=== PATIENT | female | born 1965 | race Caucasian/White ===

== ENCOUNTER 2019-09-17 10:44 | Outpatient (RCR) | payer BC, SELFPAY ==
[2019-09-17 11:02] VITALS: BMI 28.8
== END 2019-12-16 23:59 | disposition home or self-care (01) ==
LOC: ANHDMC 10:44
PROVIDERS: PCP Family Medicine; Visit Provider Family Medicine
DX: E11.9 Type 2 diabetes mellitus without complications (principal); Z71.3 Dietary counseling and surveillance
CPT/HCPCS: 97802

== ENCOUNTER 2020-09-08 06:42 | Outpatient (NON) | payer BC, SELFPAY ==
[2020-09-10 21:25] LABS: SARS-CoV-2 RNA PCR Negative
== END 2020-09-08 06:43 ==
PROVIDERS: PCP Family Medicine; Visit Provider Physician Assistant
DX: R06.02 Shortness of breath (principal); Z20.828 Contact with and (suspected) exposure to other viral communicable diseases
CPT/HCPCS: 87635; C9803; U0003

== ENCOUNTER 2020-09-15 11:47 | Outpatient (CLI) | payer BC, SELFPAY ==
--- NOTE | ~2020-09-15 | XR_ITS ---
EXAMINATION: XR chest 2V EXAM DATE: 09/15/2020 12:01 INDICATION: R06.2 - Wheezing . TECHNIQUE: Frontal and lateral projections of the chest obtained and reviewed. Comparison is made to prior examination from 09/13/2018. FINDINGS: The lungs are clear. There are no pleural effusions. The cardiomediastinal silhouette is within normal limits. There is no pneumothorax suspected. The bones and soft tissues are unremarkab le. There is no significant interval change. IMPRESSION: No acute cardiopulmonary findings. Reviewed, dictated and finalized at location A. ELING CRANE OPERATOR
== END 2020-09-15 11:48 ==
PROVIDERS: PCP Family Medicine; Visit Provider Physician Assistant
DX: R06.2 Wheezing (principal)
CPT/HCPCS: 71046

== ENCOUNTER 2021-02-10 12:00 | Emergency (ER) | payer BC, SELFPAY ==
[2021-02-10] VITALS (7 sets, daily range): BP systolic 139–155; BP diastolic 72–93; PULSE 64–89; RESP 14–19; TEMP 36.6; O2SAT 99–100
--- NOTE | ~2021-02-10 | CT_ITS ---
EXAMINATION: CT abdomen pelvis w con EXAM DATE: 02/10/2021 17:00 INDICATION: Left sided abdominal pain. TECHNIQUE: Spiral CT of the abdomen and pelvis was performed following intravenous injection of 100 m L Omnipaque 350. Axial, coronal and sagittal images of the abdomen and pelvis were reviewed. The do se-length product (DLP) for this examination was 518.08 mGy-cm. The exposure was tailored according to patient size (auto mA exposure control), and iterative reconstruction (ASIR) was used as additiona l dose reduction technique. Comparison is made to prior examination from 02/01/2016. FINDINGS: There is mild feli mesentery appearance, a nonspecific finding but most commonly caused by infiltration with inflammatory cells, chronic mesenteric panniculitis. No pathologically enlarged ly mph nodes to suggest lymphoma/malignancy, or thrombosed vessels to suggest edema. Appearance unchang ed compared to 2016. There is hepatic steatosis without suspicious focal lesion identified. Spleen, adrenal glands, pancre as are unremarkable. Gallbladder is unremarkable. No biliary obstruction. Portal and splenic veins are patent. Kidneys enhance symmetrically. There is no hydronephrosis. Multiple renal cysts bilate rally up to 6 cm on the right. The uterus is not identified and has likely been surgically resected. The bladder is unremarkable. There is no retroperitoneal or pelvic lymphadenopathy. The appendix is normal. There is small sliding gastroesophageal hiatal hernia. There is expected am ount of colonic stool. No free intraperitoneal gas. The heart is normal in size. There are no pe ricardial or pleural effusions. The lung bases are unremarkable. The bones are unremarkable. IMPRESSION: 1. Unchanged feli mesentery appearance, probably chronic mesenteric panniculitis. 2. Mild hepatic steatosis. 3. Small hiatal hernia. Reviewed, dictated and finalized at location A. IMPRESSION: 1. Unchanged feli mesentery appearance, probably chronic mesenteric panniculi tis. 2. Mild hepatic steatosis. 3. Small hiatal hernia.
--- NOTE | ~2021-02-10 | XR_ITS ---
EXAMINATION: XR chest 2V 02/10/2021 13:45 INDICATION: Shortness of breath PROCEDURE: 2 view chest COMPARISON: 01/31/2016 FINDINGS: The lungs are clear. The cardiomediastinal silhouette is within normal limits. There are no pleural effusions. There is no pneumothorax suspected. IMPRESSION: 1: NO ACUTE CARDIOPULMONARY DISEASE. Reviewed, dictated and finalized at location B.
--- NOTE | 2021-02-10 12:14 | ECG_ITS ---
Measurements Intervals [place] Rate: 86 P: 58 VA: 156 QRS: 51 QRSD: 79 T: 42 QT: 347 QTc: 416 Interpretive Statements SINUS RHYTHM BORDERLINE ST ABNORMALITY- ANTEROLAT/INF LEADS BORDERLINE ECG Electronically Signed On 02-10-2021 12:17:39 CDT by Shmuel Parsons D.O.
[2021-02-10 12:28] LABS: Basophils Absolute Auto 0.1 K/mm3 (0.0-0.1); Basophils Percent Auto 0.5 % (0.2-1.2); Eosinophils Absolute Auto 0.2 K/mm3 (0-0.3); Hematocrit 46.5 % (37.0-47.0); Hemoglobin 15.5 g/dL (12.0-15.0); Immature Granulocyte Absolute 0.04 K/mm3 (0.00-0.031); Immature Granulocyte Percent A 0.4 % (0-0.5); Lymphocytes Absolute Auto 1.76 K/mm3 (0.9-3.2); Lymphocytes Percent Auto 15.9 % (18.3-44.2); Mean Corpuscular HGB Conc 33.3 g/dl (32-36); Mean Corpuscular Hemoglobin 29.4 pg (26-34); Mean Corpuscular Volume 88.2 fl (80-100); Mean Platelet Volume 9.1 fl (7.4-10.4); Monocytes Absolute Auto 0.2 K/mm3 (0.1-0.6); Neutrophils Absolute Auto 8.8 K/mm3 (1.3-6.7); Neutrophils Percent Auto 79.2 % (45.5-73.1); Platelet Count Result 470 k/mm3 (150-375); Red Blood Count 5.27 M/mm3 (4.2-5.4); Red Cell Distribution Width 12.6 % (11.5-14.5); White Blood Count 11.1 K/mm3 (4.5-10.0)
[2021-02-10 12:39] LABS: Anion Gap 7 mmol/L (8-16); Blood Urea Nitrogen 19 mg/dL (7-17); Calcium 9.5 mg/dL (8.4-10.2); Carbon Dioxide 29 mmol/L (22-30); Chloride 105 mmol/L (98-107); Estimated CRCL calculation 63 ml/min; Estimated Glomerular Filt Rate > 60; Glucose 146 mg/dL (65-105); Potassium 4.3 mmol/L (3.4-5.0); Sodium 141 mmol/L (137-145)
--- NOTE | 2021-02-10 13:40 | PC.NURSE ---
Pt to XRAY via stretcher at this time.
--- NOTE | 2021-02-10 14:05 | ED.SOB ---
HPI - SOB/Dyspnea General Chief Complaint: Shortness of Breath/Dyspnea Stated Complaint: Difficulty breathing Time Seen by Provider: 02/10/21 13:33 Source: patient Mode of arrival: ambulatory Limitations: no limitations History of Present Illness HPI Narrative: This is a 55 year old female that presents to the ER for shortness of breath x 1 week. Reports dyspnea on exertion. Reports she has been coughing up some mucus. Reports wheezing and history of asthma. Also reports abdominal pain which started today. Reports she feels bloated. Reports some diarrhea. Denies fever, vomiting, dysuria, hematuria, or lower extremity edema. Related Data Allergies Allergy/AdvReac Type Severity Reaction Status Date / Time prochlorperazine Allergy Mild SEIZURE Verified 09/06/20 15:52 codeine Allergy Unknown VOMITING Verified 09/06/20 15:52 Review of Systems Review of Systems: Narrative: CONSTITUTIONAL: Denies fever CARDIOVASCULAR: Denies chest pain, or edema. RESPIRATORY: Reports cough and dyspnea. GASTROINTESTINAL: Reports abdominal pain, and diarrhea. Denies nausea or vomiting GENITOURINARY: Denies dysuria or hematuria. All systems reviewed & are unremarkable except as noted in HPI and below PMFSH Past Medical History Medical History (Updated 02/10/21 @ 17:27 by Christine Jean PA-C) Asthma Diabetes HLD (hyperlipidemia) Neck pain Surgical History Surgical History Hx of cholecystectomy (~2015) Family History Family History Mother Family history of thyroid disease Family history of coronary artery disease Family history of congestive heart failure Family history of heart disease in male family member before age 55 Family history of obesity Family history of osteoporosis Hypertension Asthma Family history of arthritis Family history of chronic obstructive pulmonary disease Family history of diabetes mellitus in first degree relative Family history of pancreatic cancer Father Family history of thyroid disease Carcinoma of colon Family history of diabetes mellitus in first degree relative Family history of coronary artery disease Family history of lung disease Family history of atrial fibrillation Family history of congestive heart failure Family history of heart disease in male family member before age 55 Family history of blood dyscrasia Family history of glaucoma Family history of cataracts Hypertension Asthma Family history of arthritis Family history of kidney disease Family history of chronic obstructive pulmonary disease Sibling Family history of thyroid disease Cerebrovascular accident Carcinoma of colon Family history of malignant neoplasm of breast in first degree relative Family history of seizure disorder Social History Social History Smoking status: Never smoker Second hand tobacco smoke exposure: No Alcohol intake: current Gender identity (if verbalized by the patient): Female Spiritual care concerns: No Exam Narrative: Exam Narrative: GENERAL: Well-appearing, well-nourished, and in no acute distress. HEAD: Normocephalic, atraumatic. EYES: EOMI. ENT: Nares clear, no rhinorrhea or epistaxis. Mucous membranes moist. Oropharynx without tonsillar hypertrophy exudate or other lesions. Bilateral TMs pearly viramontes non-bulging NECK: Supple. No adenopathy or masses. CHEST: Clear to auscultation. No respiratory distress. No wheezes rales or rhonchi HEART: Regular rate and rhythm. No murmur heard. Normal peripheral pulses. ABDOMEN: Soft, nondistended, normal active bowel sounds. Tender to palpation throughout the left side of the abdomen, without guarding. No CVA tenderness EXTREMITIES: Normal range of motion. No edema. SKIN: Warm, dry, no rash. NEURO: No focal deficits. Alert and oriented x3. PSYCH: Normal
[2021-02-10 14:23] LABS: Alanine Aminotransferase 22 U/L (4-35); Albumin Level 4.6 g/dL (3.5-5.1); Alkaline Phosphatase 101 U/L (38-126); Aspartate Amino Transferase 26 U/L (14-36); Bilirubin,Total 0.3 mg/dL (0.2-1.3); Lipase 124 U/L (23-300)
[2021-02-10 14:33] LABS: INR 0.9; Prothrombin Time 12.3 Seconds (11.1-14.7)
[2021-02-10 14:35] LABS: Troponin I < 0.012 ng/mL (0.000-0.034)
[2021-02-10 14:36] LABS: Partial Thromboplastin Time 30.2 SECONDS (22.3-36.8)
[2021-02-10 14:42] LABS: D Dimer 0.25 ug/mL (<0.48)
[2021-02-10 15:02] LABS: Add Urine Microscopic? NO; Appearance Urine Clear (Clear); Bilirubin Urine Negative (Negative); Blood Urine Negative (Negative); Color Urine Yellow (Yellow); Glucose Urine UA Negative (Negative); Ketones Urine Negative (Negative); Leukocyte Esterase Ur Negative LEU/UL (Negative); Nitrate Urine Negative (Negative); Protein Urine Negative (Negative); Specific Grav Ur 1.018 (1.001-1.035); Urobilinogen Urine Negative mg/dL (<2.0)
== END 2021-02-10 18:05 | disposition home or self-care (01) ==
PROVIDERS: General Practice; Physician Assistant; Emergency Provider Emergency Medicine; PCP Family Medicine
DX: R06.00 Dyspnea, unspecified (principal); R10.9 Unspecified abdominal pain; J45.909 Unspecified asthma, uncomplicated; E11.9 Type 2 diabetes mellitus without complications; E78.5 Hyperlipidemia, unspecified; R94.31 Abnormal electrocardiogram [ECG] [EKG]; K76.0 Fatty (change of) liver, not elsewhere classified; K44.9 Diaphragmatic hernia without obstruction or gangrene; Z79.84 Long term (current) use of oral hypoglycemic drugs
CPT/HCPCS: 36415; 71046; 74177; 80048; 80076; 81003; 83690; 84484; 85025; 85380; 85610; 85730; 93005; 99284; Q9967

== ENCOUNTER 2022-07-20 12:47 | Observation (INO) | payer BC, SELFPAY ==
--- NOTE | ~2022-07-20 | XR_ITS ---
EXAMINATION: XR soft tissue neck DATE: 07/20/2022 17:12 INDICATION: Impacted food bolus. TECHNIQUE: 2 views of the neck soft tissues on 3 radiographs were obtained. COMPARISON: None. FINDINGS: The adenoids, palatine tonsils, prevertebral soft tissues, epiglottis, and airway are sky l. There is no radiopaque foreign body. IMPRESSION: 1. Normal neck soft tissues. Reviewed, dictated and finalized at location A.
--- NOTE | ~2022-07-20 | XR_ITS ---
EXAMINATION: XR chest 2V DATE: 07/20/2022 17:12 INDICATION: Infected food bolus. TECHNIQUE: Frontal and lateral views of the chest were obtained. COMPARISON: Chest 2 views 02/10/2021, CT abdomen and pelvis 02/10/2021 FINDINGS: The patient is rotated to her left. There is no pneumonia, pleural effusion, or pneumothora x. The heart size is normal. Surgical clips in the right upper quadrant are likely from cholecystecto my. IMPRESSION: 1. No acute cardiopulmonary disease. Reviewed, dictated and finalized at location A.
[2022-07-20 12:59] VITALS: BP 170/91; PULSE 90; RESP 18; TEMP 36.3; O2SAT 99
[2022-07-20 16:06] VITALS: PULSE 98
[2022-07-20 16:07] VITALS: BP 182/97; PULSE 98; RESP 20; O2SAT 98
[2022-07-20 16:15] LABS: Basophils Absolute Auto 0.1 K/mm3 (0.0-0.1); Basophils Percent Auto 0.6 % (0.2-1.2); Eosinophils Absolute Auto 0.5 K/mm3 (0-0.3); Eosinophils Percent Auto 4.6 % (0-4.4); Hematocrit 46.1 % (37.0-47.0); Hemoglobin 15.3 g/dL (12.0-15.0); Immature Granulocyte Absolute 0.04 K/mm3 (0.00-0.031); Immature Granulocyte Percent A 0.3 % (0-0.5); Lymphocytes Absolute Auto 2.66 K/mm3 (0.9-3.2); Lymphocytes Percent Auto 22.9 % (18.3-44.2); Mean Corpuscular HGB Conc 33.2 g/dl (32-36); Mean Corpuscular Hemoglobin 29.5 pg (26-34); Mean Platelet Volume 9.2 fl (7.4-10.4); Monocytes Absolute Auto 0.5 K/mm3 (0.1-0.6); Monocytes Percent Auto 4.3 % (2.6-8.5); Neutrophils Absolute Auto 7.8 K/mm3 (1.3-6.7); Neutrophils Percent Auto 67.3 % (45.5-73.1); Platelet Count Result 403 k/mm3 (150-375); Red Blood Count 5.18 M/mm3 (4.2-5.4); Red Cell Distribution Width 13.3 % (11.5-14.5); White Blood Count 11.6 K/mm3 (4.5-10.0)
[2022-07-20 16:24] LABS: Alanine Aminotransferase 30 U/L (6-35); Alkaline Phosphatase 117 U/L (38-126); Anion Gap 11 mmol/L (8-16); Aspartate Amino Transferase 33 U/L (14-36); Bilirubin,Total 0.5 mg/dL (0.2-1.3); Blood Urea Nitrogen 15 mg/dL (7-17); Calcium 9.2 mg/dL (8.4-10.2); Carbon Dioxide 26 mmol/L (22-30); Chloride 105 mmol/L (98-107); Estimated CRCL calculation 70 ml/min; Estimated Glomerular Filt Rate > 60; Glucose 113 mg/dL (65-110); Potassium 3.9 mmol/L (3.4-5.0); Sodium 142 mmol/L (137-145)
--- NOTE | 2022-07-20 16:34 | ED.GENADULT ---
HPI - General Adult General Chief complaint: Unspecified Stated complaint: unable to swallow Time Seen by Provider: 07/20/22 16:10 History of Present Illness HPI narrative: 57-year-old female presents for evaluation of suspected impacted food bolus. Patient states that for the past 6 months she has had a mostly liquid diet as she has difficulty swallowing solid foods. 2 days prior to arrival she attempted to eat a small bite of chicken and has been unable to ingest any food or fluids since then. DeSmet approximately 48 hours since. She has been able to swallow solids or liquids. She has not had an EGD previously. Related Data Allergies Allergy/AdvReac Type Severity Reaction Status Date / Time prochlorperazine Allergy Mild SEIZURE Verified 07/20/22 16:10 codeine Allergy Unknown VOMITING Verified 07/20/22 16:10 ZOFRAN Allergy Severe Swelling Uncoded 07/20/22 16:10 of Lip/Tongue/Throat Review of Systems Review of Systems: Gen.: Denies fevers or chills Eyes: Denies eye pain or visual change ENT: Denies congestion Respiratory: Denies shortness of breath or cough CV: Denies chest pain or palpitations GI: Denies abdominal pain nausea, emesis or diarrhea denies burning, urgency, frequency or hematuria Musculoskeletal: Denies back pain or muscle pain Neuro: Denies numbness, tingling, weakness or focal weakness Skin: Denies rash Except as documented, all other systems reviewed and negative COUNTS INCLUDE 234 BEDS AT THE [facility] Past Medical History Medical History Asthma Diabetes HLD (hyperlipidemia) Neck pain Surgical History Surgical History H/O rectocele repair History of bladder surgery (~2010) Sling History of hysterectomy with unilateral oophorectomy History of right knee joint replacement Hx of cholecystectomy (~2015) Family History Family History Mother Family history of thyroid disease Family history of obesity Family history of osteoporosis Hypertension Asthma Family history of arthritis Family history of chronic obstructive pulmonary disease Family history of diabetes mellitus in first degree relative Family history of pancreatic cancer Family history of coronary artery disease Family history of congestive heart failure Family history of heart disease in male family member before age 55 Father Family history of thyroid disease Family history of blood dyscrasia Family history of glaucoma Family history of cataracts Hypertension Asthma Family history of arthritis Family history of kidney disease Family history of chronic obstructive pulmonary disease Carcinoma of colon Family history of diabetes mellitus in first degree relative Family history of coronary artery disease Family history of lung disease Family history of atrial fibrillation Family history of congestive heart failure Family history of heart disease in male family member before age 55 Sibling Family history of thyroid disease Cerebrovascular accident Carcinoma of colon Family history of malignant neoplasm of breast in first degree relative Family history of seizure disorder Social History Social History Smoking status: Never smoker Second hand tobacco smoke exposure: Yes Alcohol intake: never Substance use: never Substance use type: does not use Gender identity (if verbalized by the patient): Female Spiritual care concerns: No Exam Narrative: GENERAL: Well-appearing, well-nourished, and in no acute distress. HEAD: Normocephalic, atraumatic. EYES: PERRLA and EOMI. ENT: Nares clear, no rhinorrhea or epistaxis. Mucous membranes moist. NECK: Supple. CHEST: Clear to auscultation. No respiratory distress. HEART: Regular rate and rhythm. No murmur heard. Normal peripheral pulses.
[2022-07-20] MEDS: LACTATED RINGERS 1,000 ML 999 ML IV CONT (16:42)
[2022-07-20] MEDS: GLUCAGON FOR INJ 1 MG VIAL IM (16:42)
[2022-07-20 16:45] VITALS: BP 187/90; PULSE 83; RESP 16; O2SAT 96
[2022-07-20 17:15] LABS: Appearance Urine Clear (Clear); Bilirubin Urine 1+ (Negative); Blood Urine 1+ (Negative); Color Urine Yellow (Yellow); Glucose Urine UA Negative (Negative); Ketones Urine 3+ mg/dL (Negative); Leukocyte Esterase Ur 2+ LEU/UL (Negative); Nitrate Urine Negative (Negative); Protein Urine Trace mg/dL (Negative); Specific Grav Ur 1.025 (1.001-1.035); Urobilinogen Urine 0.2 mg/dL (<2.0); pH Urine 6.5 (5.0-9.0)
[2022-07-20 17:22] LABS: Mucus Urine Rare /lpf; Squamous Epithelial Cell Urine Rare /hpf (Few); WBC Urine 51-75 /hpf
[2022-07-20 17:25] LABS: Add Urine Microscopic? YES
[2022-07-20 18:43] VITALS: BP 166/95; PULSE 89; RESP 18; O2SAT 96
[2022-07-20] MEDS: LACTATED RINGERS 1,000 ML 83 ML IV CONT (18:50)
[2022-07-20 21:20] VITALS: BP 144/63; PULSE 71; RESP 18; TEMP 36.2; O2SAT 98
[2022-07-20 21:21] VITALS: BMI 26.9
--- NOTE | 2022-07-20 21:26 | ADMGEN ---
This patient, Kalli López, was admitted to 3 [facility] Surg Room 315-01. Patient/family oriented to hospital policies and general routines including ID bracelet, bed and alarms, visiting hours, pain management, procedures, bathroom and other care routines, personal items, smoking policy, room service/diet, and visiting hours. Information on how to activate the Rapid Response Team has been discussed. Patient/Family are encouraged to report perceived risks to care and to ask questions if they do not understand what they are told or what they should do.
--- NOTE | 2022-07-20 22:25 | PM.IMHP ---
H&P: HPI History of Present Illness Date/Time: 07/20/22 22:25 Chief Complaint: dysphagia Narrative: This is a 57-year-old female with past medical history significant for dysphagia, asthma. patient presents to the emergency room due to dysphagia that has progressively gotten worse over the course of the last 2 days or so after patient had a bite of chicken and regurgitated. Patient has had chronic dysphagia due to gastroesophageal reflux disease and Albarran's esophagus she is usually able to swallow liquids but have noticed a progressively worsening over the last the course of the last 6 months or so that now she is unable to swallow liquids as well and to handle her own secretions drools all the time and spits all the time sleeps with a towel to Jeniffer her secretions however denies any weight loss just recently underwent hernia repair surgery in part june. Preliminary workup was significant for urinalysis with wbc's 50-75 per high-power field, WBC 80932 Soft tissue of the neck x-ray was reported as: IMPRESSION: 1. Normal neck soft tissues.. a chest x-ray was reported as; IMPRESSION: 1. No acute cardiopulmonary disease. Patient is been admitted for further evaluation management and treatment. Review of Systems Review of Systems: dysphagia, trouble swallowing solids and and progressively getting worse with liquids. Constitutional: Constitutional: Denies chills, Denies fever(s), Denies malaise, Denies night sweats and Denies weakness Eyes: Eyes: Denies change in vision ENT: Reports dysphagia and Denies odynophagia Cardiovascular: Cardiovascular: Denies chest pain, Denies syncope, Denies irregular heart rhythm and Denies lightheadedness Respiratory: Respiratory: Denies chest congestion, Denies cough and Denies pain on inspiration Gastrointestinal: Gastrointestinal: Denies abdominal pain, Denies dyspepsia, Denies heartburn, Denies nausea and Denies vomiting Genitourinary: Genitourinary: Denies dysuria Musculoskeletal: Musculoskeletal: Denies back pain, Denies myalgias, Denies joint swelling and Denies muscle weakness Integumentary/Breasts: Skin/Breast: Denies rash Neurologic: Denies vertigo, Denies dizziness, Denies syncope, Denies focal weakness and Denies Sensory deficit (Neuro) Psychiatric: Psychiatric: Reports no additional psychiatric complaints and Reports as per HPI Endocrine: Endocrine: Denies cold intolerance, Denies flushing, Denies heat intolerance, Denies polyphagia, Denies polydipsia and Denies palpitations Hematologic/Lymphatic: Hematologic/Lymphatic: Reports no additional hematologic/lymphatic complaints and Reports as per HPI Allergic/Immunologic: Allergic/Immunologic: Reports no additional allergic/immunologic complaints and Reports as per HPI PMFSH Past Medical History Medical History Asthma Diabetes HLD (hyperlipidemia) Neck pain Surgical History Surgical History H/O rectocele repair History of bladder surgery (~2010) Sling History of hysterectomy with unilateral oophorectomy History of right knee joint replacement Hx of cholecystectomy (~2015) Family History Family History Mother Family history of thyroid disease Family history of obesity Family history of osteoporosis Hypertension Asthma Family history of arthritis Family history of chronic obstructive pulmonary disease Family history of diabetes mellitus in first degree relative Family history of pancreatic cancer Family history of coronary artery disease Family history of congestive heart failure Family history of heart disease in male family member before age 55 Father Family history of thyroid disease Family history of blood dyscrasia Family history of glaucoma Family history of cataracts Hypertension Asthma Family his
[2022-07-21] VITALS (10 sets, daily range): BP systolic 110–155; BP diastolic 56–73; PULSE 66–86; RESP 16–21; TEMP 35.8–36.6; O2SAT 97–100
[2022-07-21] MEDS: cefTRIAXone 2 GM in SODIUM CHLORIDE 0.9% IV 100 ML 200 ML IVPB (03:36)
--- NOTE | 2022-07-21 07:57 | WPDGICN ---
Assessment and Plan Assessment and plan (1) Dysphagia: Code(s): R13.10 - Dysphagia, unspecified Status: Acute Assessment and Plan: Patient with difficulty swallowing. Her history is somewhat uncertain. She appears to have narrowing of the esophagus or throat difficulties. There is a question of a food impaction. Symptoms appear to have been present for approximately 2 months. Plan is for EGD to assess more thoroughly. Further recommendations will be given after endoscopy. GI Consult Note Consult date/time: 07/21/22 07:57 Reason for consult: Dysphagia HPI: Kalli López is a 57 year old female I am asked to see at the request of the emergency room because of difficulty swallowing. Patient gives a history of difficulty swallowing for several months. Apparently only able to maintain liquids. Patient reports 2 days ago ate a small amount of meat in his unable eat or swallow subsequently. She points to the throat she states that her food stays in her mouth and she subsequently has regurgitated. She denies any bleeding. She denies any weight loss. She gives a very difficult history. She states she has difficulty with digestion but is unable to specify this more specifically. Patient has had prior surgery apparently for rectocele. Previous workup has all been performed elsewhere. Family history is noncontributory. Patient presents to the emergency room with concern over food impaction. Admitted overnight for IV fluid rehydration Review of Systems Review of Systems: review of systems noncontributory. [facility] Past Medical History Medical History Asthma Diabetes HLD (hyperlipidemia) Neck pain Surgical History Surgical History H/O rectocele repair History of bladder surgery (~2010) Sling History of hysterectomy with unilateral oophorectomy History of right knee joint replacement Hx of cholecystectomy (~2015) Family History Family History Mother Family history of thyroid disease Family history of obesity Family history of osteoporosis Hypertension Asthma Family history of arthritis Family history of chronic obstructive pulmonary disease Family history of diabetes mellitus in first degree relative Family history of pancreatic cancer Family history of coronary artery disease Family history of congestive heart failure Family history of heart disease in male family member before age 55 Father Family history of thyroid disease Family history of blood dyscrasia Family history of glaucoma Family history of cataracts Hypertension Asthma Family history of arthritis Family history of kidney disease Family history of chronic obstructive pulmonary disease Carcinoma of colon Family history of diabetes mellitus in first degree relative Family history of coronary artery disease Family history of lung disease Family history of atrial fibrillation Family history of congestive heart failure Family history of heart disease in male family member before age 55 Sibling Family history of thyroid disease Cerebrovascular accident Carcinoma of colon Family history of malignant neoplasm of breast in first degree relative Family history of seizure disorder Social History Social History Smoking status: Never smoker Second hand tobacco smoke exposure: Yes Additional smoking assessment comments: secondhand smoke exposure Alcohol intake: never Substance use: never Substance use type: does not use Gender identity (if verbalized by the patient): Female Spiritual care concerns: No Meds Home Medications and Allergies Home Medications Medication Instructions Recorded Confirmed Type blood-glucose meter (OneTouch #1 ea 08/20/19
[2022-07-21] MEDS: ENOXAPARIN 40 MG/0.4 ML SYRINGE SUB-Q (09:25)
--- NOTE | 2022-07-21 10:24 | PM.IMPN ---
Progress Note: A&P Assessment and Plan (1) Dysphagia: Code(s): R13.10 - Dysphagia, unspecified Status: Acute Assessment and Plan: admit to regular medical floor NPO IV fluids (2) Food impaction of esophagus: Code(s): T18.128A - Food in esophagus causing other injury, initial encounter Status: Acute Assessment and Plan: GI consult plan for scope supportive care (3) Asthma: Qualifiers: Asthma severity: moderate Asthma persistence: unspecified Asthma complication type: uncomplicated Qualified Code(s): J45.909 - Unspecified asthma, uncomplicated Code(s): J45.909 - Unspecified asthma, uncomplicated Status: Chronic Assessment and Plan: continue nebulizer (4) HLD (hyperlipidemia): Code(s): E78.5 - Hyperlipidemia, unspecified Status: Chronic Assessment and Plan: follow-up in outpatient setting Subjective Date/time seen: 07/21/22 10:24 no new complaints Exam Narrative: Patient is laying in bed Const: General: cooperative, comfortable, no acute distress, well developed, alert, awake, average body habitus and other ( well-appearing) Nutritional Appearance: average body habitus Orientation/consciousness: patient oriented x3 HENMT: Head: normal to inspection, normocephalic and atraumatic Ears: hearing grossly normal bilaterally Face/Nose/Sinus: normal facial exam Face and sinus: normal facial exam Eyes: General: appearance normal, both eyes and all related structures Pupils: Equal, round and reactive pupils present EOM: EOMs intact bilaterally Neck: Neck: full ROM, no lymphadenopathy and no JVD Thyroid: thyroid normal Lymphatic: no lymphadenopathy noted Resp: Effort & Inspection: normal respiratory effort and able to speak in complete sentences Auscultation: clear to auscultation bilaterally Cardio: Jugular venous distension: no JVD Rate: regular rate Rhythm: regular rhythm Heart sounds: S1 normal heart sound present and S2 normal heart sound present : General: Yes deferred Skin: Rashes: no rashes Wounds: no wounds Neuro: General: patient oriented x3 and CN's II-XI intact bilaterally Cranial nerves: Yes CN's II-XII intact bilaterally and Yes Equal, round and reactive pupils present Cognition (Neuro): normal cognition Speech: normal speech Gait exam (Neuro): Normal gait present Motor exam (neuro): 5/5 motor strength present throughout Sensory Exam: No Sensory deficit (Neuro) Extrem: General: normal to inspection, full ROM, no joint enlargement and no pedal edema Objective Data Vital Signs Vital Signs: Vital Signs - 24 hr 07/20/22 12:59 07/20/22 16:06 07/20/22 16:07 Temperature 97.4 F L Pulse Rate 90 98 98 Respiratory Rate 18 20 Blood Pressure 170/91 H 182/97 H Pulse Oximetry 99 98 Oxygen Delivery 07/20/22 16:45 07/20/22 18:43 07/20/22 21:20 Temperature 97.2 F L Pulse Rate 83 89 71 Respiratory Rate 16 18 18 Blood Pressure 187/90 H 166/95 H 144/63 H Pulse Oximetry 96 96 98 Oxygen Delivery 07/20/22 22:51 07/21/22 06:00 Temperature 96.5 F L Pulse Rate 84 Respiratory Rate 18 Blood Pressure 148/65 H Pulse Oximetry 99 Oxygen Delivery Room Air Intake/Output Intake/Output: Intake & Output 07/18/22 07/19/22 07/20/22 07/21/22 23:59 23:59 23:59 23:59 Intake Total 1100 100 Balance 1100 100 Meds/Results Medications: Active Medications Generic Name Dose Route Start Last Admin Trade Name Freq PRN Reason Stop Dose Admin Albuterol 1 puff 07/21/22 03:13 Albuterol Sulfate (*Sp) Aerosol 1 Puff INHALATION Q4H PRN shortness of breath or wheezing Enoxaparin Sodium 40 mg 07/21/22 09:00 07/21/22 09:25 Enoxaparin 40 Mg/0.4 Ml Syringe SUB-Q 40 mg DAILY ANDREWS Administration Acetaminophen 1,000 mg in 100 mls @ 400 mls/hr 07/20/22 22:31 07/20/22 22:53 Ofirmev 1,000 Mg Ivpb IVPB 07/21/22 22:30 Infused Q6H PRN Infusion P
[2022-07-21] MEDS: LACTATED RINGERS 1,000 ML 150 ML IV CONT (11:17)
--- NOTE | 2022-07-21 11:32 | WPDANESEPPF ---
Anes - Initial Pre Proc Eval Procedure: Operation Date: 07/21/22 13:00 Proposed Procedures p Esophagogastroduodenoscopy EGD - Ethan Galvan MD Date/Time: 07/21/22 11:32 Surgeon: Pedro Borden MD Pre Op Diagnosis: impacted food bolus Patient Data Age: 57 Gender: F Height: 1.57 m Weight: 66.9 kg Last Vital Signs Temp 97.8 F 07/21/22 11:11 Pulse 78 07/21/22 11:11 Resp 16 07/21/22 11:11 BP 151/73 H 07/21/22 11:11 Pulse Ox 99 07/21/22 11:11 O2 Del Method Room Air 07/21/22 11:11 Allergies Allergy/AdvReac Type Severity Reaction Status Date / Time prochlorperazine Allergy Mild SEIZURE Verified 07/21/22 11:09 codeine Allergy Unknown VOMITING Verified 07/21/22 11:09 ZOFRAN Allergy Severe Swelling Uncoded 07/21/22 11:09 of Lip/Tongue/Throat Home Medications Medication Instructions Recorded Confirmed Type blood-glucose meter (OneTouch #1 ea 08/20/19 07/20/22 Rx Ultra2 Meter kit) albuterol sulfate 90 mcg/actuation 1 inh inhalation Q4H PRN shortness 03/29/22 07/20/22 Rx aerosol inhaler (Ventolin HFA) of breath or wheezing #8.5 grams carisoprodol 350 mg tablet 350 mg PO TID PRN muscle pain #90 06/05/22 07/20/22 Rx tabs blood sugar diagnostic #100 ea 06/12/22 07/20/22 Rx lancets 30 gauge (OneTouch Delica #100 ea 06/12/22 07/20/22 Rx Plus Lancet) Laboratory Tests 07/20/22 07/20/22 07/20/22 16:09 16:09 17:10 WBC 11.6 K/mm3 H K/mm3 (4.5-10.0) RBC 5.18 M/mm3 M/mm3 (4.2-5.4) Hgb 15.3 g/dL H g/dL (12.0-15.0) Hct 46.1 % % (37.0-47.0) MCV 89.0 fl fl (80-100) MCH 29.5 pg pg (26-34) MCHC 33.2 g/dl g/dl (32-36) RDW 13.3 % % (11.5-14.5) Plt Count 403 k/mm3 H k/mm3 (150-375) MPV 9.2 fl fl (7.4-10.4) Immature Gran % (Auto) 0.3 % % (0-0.5) Neut % (Auto) 67.3 % % (45.5-73.1) Lymph % (Auto) 22.9 % % (18.3-44.2) [place] % (Auto) 4.3 % % (2.6-8.5) Eos % (Auto) 4.6 % H % (0-4.4) Baso % (Auto) 0.6 % % (0.2-1.2) Lymph # (Auto) 2.66 K/mm3 K/mm3 (0.9-3.2) [place] # (Auto) 0.5 K/mm3 K/mm3 (0.1-0.6) Eos # (Auto) 0.5 K/mm3 H K/mm3 (0-0.3) Baso # (Auto) 0.1 K/mm3 K/mm3 (0.0-0.1) Abs Immat Gran (auto) 0.04 K/mm3 H K/mm3 (0.00-0.031) Absolute Neuts (auto) 7.8 K/mm3 H K/mm3 (1.3-6.7) Absolute Nucleated RBC 0.0 K/mm3 K/mm3 (0.0-0.012) Nucleated RBC % 0.0 % % (0.0-0.2) Sodium 142 mmol/L mmol/L (137-145) Potassium 3.9 mmol/L mmol/L (3.4-5.0) Chloride 105 mmol/L mmol/L (98-107) Carbon Dioxide 26 mmol/L mmol/L (22-30) Anion Gap 11 mmol/L mmol/L (8-16) BUN 15 mg/dL mg/dL (7-17) Creatinine 0.70 mg/dL mg/dL (0.7-1.0) Estim Creat Clear Calc 70 ml/min ml/min Estimated GFR > 60 (59 - ) Glucose 113 mg/dL H mg/dL (65-110) Calcium 9.2 mg/dL mg/dL (8.4-10.2) Total Bilirubin 0.5 mg/dL mg/dL (0.2-1.3) AST 33 U/L U/L (14-36) ALT 30 U/L U/L (6-35) Alkaline Phosphatase 117 U/L U/L (38-126) Total Protein 9.0 g/dL H g/dL (6.3-8.2) Albumin 5.0 g/dL g/dL (3.5-5.1) Urine Color Yellow (Yellow) Urine Appearance Clear (Clear) Urine pH 6.5 (5.0-9.0) Ur Specific [place] 1.025 (1.001-1.035) Urine Protein Trace mg/dL mg/dL (Negative) Urine Glucose (UA) Negative mg/dL mg/dL (Negative) Urine Ketones 3+ mg/dL H mg/dL (Negative) Ur Blood (Man) 1+ H (Negative) Urine Nitrate Negative (Negative) Urine Bilirubin 1+ H (Negative) Urine Urobilinogen 0.2 mg/dL mg/dL (<2.0) Leukocyte Esterase Rfl 2+ JADE/UL H L
--- NOTE | 2022-07-21 11:59 | SUR.PHASEII ---
patient is spitting up a scant amount of bright red blood. Informed Dr. Galvan who states it is due to the esophageal dilation. No new orders at this time. Will continue to monitor if amount increases in recovery.
--- NOTE | 2022-07-21 12:08 | SUR.PHASEII ---
patient's bleeding from mouth is beginning to slow down. will informed Dr. beckford one more time before she is transferred to inpatient unit.
--- NOTE | 2022-07-21 12:37 | SUR.PHASEII ---
esophageal bleeding has subsided. Dr. Galvan states patient can be transferred back to inpatient unit. Patient states she is having some pain in the area that was dilated. Informed Palma, inpatient nurse. Instructed patient to contact her nurse if bleeding begins again. Vitals stable.
[2022-07-21 16:39] LABS: Glucose Point of Care 90 mg/dl (65-105)
[2022-07-21] MEDS: carisoprodoL (*CRX) 350 MG TABLET PO (21:04)
[2022-07-21] MEDS: SUMAtriptan SUCCINATE 6 MG/0.5 ML VIAL SUB-Q (23:34)
--- NOTE | 2022-07-22 | PC.NURSE ---
Pt. has reports of a migraine that has been uncontrolled with IV tylenol, ice packs, food consumption, muscle relaxer, and environment modification. Pt. reports a history of migraines in the past and during this hospital admission. Pt. states this migraine feels like a fullness in her head with pain localized to the left side of her forehead. Received orders from Dr. Oconnor to administer a one time dose of sumatriptan to patient for relief of migraine. Medication uses, side effects, and adverse reactions explained to the patient and the nurse stayed in the room with the patient for 15 minutes after administration to observe for an allergic reaction. No reaction to the medication noted by the nurse except for the expected side effects of dizziness and drowsiness. Pt. instructed to call in two hours after administration time if symptoms unrelieved or only partially unrelieved. Crackers also offered to pt. for complaints of nausea. Will continue to monitor patient.
[2022-07-22] MEDS: LORazepam INJ (*CRX) 2 MG/ML VIAL 1 MG IV PUSH (01:54)
--- NOTE | 2022-07-22 02:08 | PC.NURSE ---
Pt's migraine was partially relieved after sumatriptan but two hours after administration pt. called out to say migraine has returned. Dr. Oconnor ordered 1 mg Ativan IV push. Explained to pt. the uses, side effects, and adverse reactions. After administering medication, nurse stayed with pt. to ensure no reaction occurred per pt. request. No reactions to medication witnessed. Call light within reach and will continue to monitor.
[2022-07-22] MEDS: METOCLOPRAMIDE HCL INJ 10 MG/2 ML VIAL IV PUSH ×2 (05:31→12:05)
--- NOTE | 2022-07-22 05:41 | PC.NURSE ---
Pt. still complains of headache that is throbbing and feels like a fullness in her head. IV push Dexamethasone and Metoclopramide ordered from Dr. Oconnor. Will continue to monitor and pass onto the next shift.
[2022-07-22 05:57] VITALS: BP 140/64; PULSE 99; RESP 18; TEMP 36.7; O2SAT 96
[2022-07-22 07:50] LABS: Glucose Point of Care 150 mg/dl (65-105)
[2022-07-22] MEDS: carisoprodoL (*CRX) 350 MG TABLET PO (08:24)
[2022-07-22] MEDS: PANTOPRAZOLE 40 MG TABLET PO (08:25)
--- NOTE | 2022-07-22 09:23 | WPDGIPROGNO ---
Progress Note: A&P Assessment and Plan (1) GERD (gastroesophageal reflux disease): Code(s): K21.9 - Gastro-esophageal reflux disease without esophagitis Status: Acute Assessment and Plan: Patient with underlying GE reflux appears to cause her stricture. Long-term use of PPI therapy advised. Anti-reflux measures encouraged. If patient has recurrence dysphagia follow-up electively in the GI office is advised. (2) Esophageal stricture: Code(s): K22.2 - Esophageal obstruction Status: Acute Assessment and Plan: Distal esophageal stricture on the basis of GE reflux identified yesterday and dilated. Patient is swallowing much better today. Plan for long-term anti-reflux measures and long-term PPI use. Follow-up with primary care service advised. She can follow-up electively in GI office if swallowing difficulties persist or recur. Subjective Date/time seen: 07/22/22 09:23 Patient alert comfortable this morning. Had distal esophageal stricture dilated yesterday. Tolerating diet with no difficulty today. Review of Systems Review of Systems: Review of systems noncontributory. Exam Narrative: Physical exam reveals patient be alert. Vital signs stable. HEENT exam unremarkable. Patient is anicteric. Lungs are clear. Heart without murmur. Abdomen bowel sounds present soft nontender with no organomegaly. Objective Data Vital Signs Vital Signs: Vital Signs - 24 hr 07/21/22 11:11 07/21/22 11:49 07/21/22 11:59 Temperature 97.8 F Pulse Rate 78 79 71 Respiratory Rate 16 18 21 H Blood Pressure 151/73 H 110/56 L 124/72 Pulse Oximetry 99 98 98 Oxygen Delivery Room Air Room Air Room Air 07/21/22 12:09 07/21/22 12:19 07/21/22 12:29 Temperature Pulse Rate 66 72 67 Respiratory Rate 21 H 20 18 Blood Pressure 136/73 148/57 H 147/63 H Pulse Oximetry 99 100 97 Oxygen Delivery Room Air Room Air Room Air 07/21/22 14:00 07/21/22 20:00 07/21/22 22:00 Temperature 97.2 F L 96.5 F L Pulse Rate 67 86 Respiratory Rate 20 18 Blood Pressure 155/69 H 138/70 Pulse Oximetry 99 97 Oxygen Delivery Room Air 07/22/22 05:57 Temperature 98.0 F Pulse Rate 99 Respiratory Rate 18 Blood Pressure 140/64 Pulse Oximetry 96 Oxygen Delivery Intake/Output Intake/Output: Intake & Output 07/19/22 07/20/22 07/21/22 07/22/22 23:59 23:59 23:59 23:59 Intake Total 1100 680 980 Output Total 300 100 Balance 1100 380 880 Meds/Results Medications: Active Medications Generic Name Dose Route Start Last Admin Trade Name Freq PRN Reason Stop Dose Admin Albuterol 1 puff 07/21/22 03:13 Albuterol Sulfate (*Sp) Aerosol 1 Puff INHALATION Q4H PRN shortness of breath or wheezing Carisoprodol 350 mg 07/21/22 20:47 07/22/22 08:24 Carisoprodol (*Crx) 350 Mg Tablet PO 350 mg TID PRN Administration Muscle Spasm Enoxaparin Sodium 40 mg 07/21/22 09:00 07/22/22 08:25 Enoxaparin 40 Mg/0.4 Ml Syringe SUB-Q Not Given DAILY ANDREWS Ceftriaxone Sodium 2 gm/ 100 mls @ 200 mls/hr 07/21/22 04:00 07/22/22 03:28 Sodium Chloride IVPB Not Given Q24H ANDREWS Pantoprazole Sodium 40 mg 07/22/22 09:00 07/22/22 08:25 Pantoprazole 40 Mg Tablet PO 40 mg QAM ANDREWS Administration Radiology Results: ITS Impressions Chest X-Ray 07/20/22 17:15 IMPRESSION: 1. No acute cardiopulmonary disease. Soft Tissue Neck X-Ray 07/20/22 17:16 IMPRESSION: 1. Normal neck soft tissues. Labs Labs: Laboratory Results - last 24 hr 07/21/22 07/22/22 16:35 07:46 POC Capillary Glucose 90 150 H Amg Follow-up Billing Inpatient Follow-up [id number] [facility] Mod
--- NOTE | 2022-07-22 11:11 | WPDANESPN ---
Anes - Prog Note Post-Op Date/Time: 07/22/22 12:01 Cardiovascular status: normal Respiratory status: normal Airway patency: baseline Mental status: baseline Post-Op hydration status: normal Vital Signs: Last Vital Signs Temp 98.0 F 07/22/22 05:57 Pulse 99 07/22/22 05:57 Resp 18 07/22/22 05:57 BP 140/64 07/22/22 05:57 Pulse Ox 96 07/22/22 05:57 O2 Del Method Room Air 07/22/22 08:20 Pain Score (VAS): 4 I/O: Intake & Output 07/21/22 07/22/22 07/22/22 23:59 07:59 15:59 Intake Total 480 980 120 Output Total 300 100 Balance 180 880 120 Laboratory Tests 07/20/22 16:09 07/20/22 16:09 07/21/22 07/22/22 16:35 07:46 POC Capillary Glucose 90 150 H Microbiology 07/20/22 17:10 Unspecified Urine Culture - Final Post-procedural complaints: other (pt complains of persistent headache, improved since admission but not resolved) Patient Feedback: Patient satisfied with anesthetic care.
--- NOTE | 2022-07-22 11:11 | PM.DS ---
DS: Admitting Diagnosis Discharge Date July 22, 2022 Admitting Diagnosis Dysphagia DS: Discharge Diagnosis Discharge Diagnosis (1) Dysphagia: Code(s): R13.10 - Dysphagia, unspecified Status: Acute Assessment and Plan: admit to regular medical floor NPO IV fluids (2) Food impaction of esophagus: Code(s): T18.128A - Food in esophagus causing other injury, initial encounter Status: Acute Assessment and Plan: GI consult plan for scope supportive care (3) Asthma: Qualifiers: Asthma severity: moderate Asthma persistence: unspecified Asthma complication type: uncomplicated Qualified Code(s): J45.909 - Unspecified asthma, uncomplicated Code(s): J45.909 - Unspecified asthma, uncomplicated Status: Chronic Assessment and Plan: continue nebulizer (4) HLD (hyperlipidemia): Code(s): E78.5 - Hyperlipidemia, unspecified Status: Chronic Assessment and Plan: follow-up in outpatient setting DS: Summary Hospital Course Hospital Course: Patient is 57-year-old female came in dysphagia. Patient did undergo EGD which showed esophageal web. Patient will be on PPI discharge follow-up with GI. Time Spent with Patient Time attestation: Total time spent providing and/or coordinating discharge services: Exam Const: General: cooperative, comfortable, no acute distress, well developed, alert, awake, average body habitus and other ( well-appearing) Nutritional Appearance: average body habitus Orientation/consciousness: patient oriented x3 HENMT: Head: normal to inspection, normocephalic and atraumatic Ears: hearing grossly normal bilaterally Face/Nose/Sinus: normal facial exam Face and sinus: normal facial exam Eyes: General: appearance normal, both eyes and all related structures Pupils: Equal, round and reactive pupils present EOM: EOMs intact bilaterally Neck: Neck: full ROM, no lymphadenopathy and no JVD Thyroid: thyroid normal Lymphatic: no lymphadenopathy noted Resp: Effort & Inspection: normal respiratory effort and able to speak in complete sentences Auscultation: clear to auscultation bilaterally Cardio: Jugular venous distension: no JVD Rate: regular rate Rhythm: regular rhythm Heart sounds: S1 normal heart sound present and S2 normal heart sound present : General: Yes deferred Skin: Rashes: no rashes Wounds: no wounds Neuro: General: patient oriented x3 and CN's II-XI intact bilaterally Cranial nerves: Yes CN's II-XII intact bilaterally and Yes Equal, round and reactive pupils present Cognition (Neuro): normal cognition Speech: normal speech Gait exam (Neuro): Normal gait present Motor exam (neuro): 5/5 motor strength present throughout Sensory Exam: No Sensory deficit (Neuro) Extrem: General: normal to inspection, full ROM, no joint enlargement and no pedal edema DS: Data Data Completed and Pending Labs on day of discharge: Labs from last 24 hours 07/22/22 07/21/22 07:46 16:35 POC Capillary Glucose 150 H 90 Discharge Plan Discharge Attending physician on discharge: Pedro Borden Consulting providers: Ethan Galvan Discharging Clinician: Pedro Borden Patient Disposition: Home, Self-Care Activity: no preference Diet: as tolerated Patient Instructions: Antibiotic Form Stand Alone Forms: General Discharge Information Follow-up/Referrals: Ethan Galvan MD [Physician] - Discharge Medications: New pantoprazole [Protonix] 40 mg tablet,delayed release (DR/EC) 40 mg PO QAM 28 Days Qty: 28 0RF Continued (DME) blood-glucose meter [OneTouch Ultra2 Meter] Kit See Rx Instructions .ROUTE .MEDSUPPLY Qty: 1 0RF Rx Instructions: As directed albuterol sulfate [Ventolin HFA] 90 mcg/actuation HFA aerosol inhaler 1 inh inhalation Q4H PRN (Reason: shortness of breath or wheezing) Qty: 8.5 3RF carisoprodol 350 mg tablet 350 mg PO T
[2022-07-22] MEDS: DEXAMETHASONE SOD PHOS INJ 4 MG/ML VIAL IV PUSH (12:05)
--- NOTE | 2022-07-23 19:11 | PC.NURSE ---
patient called to say that she is now running a fever that started today. she took a covid test and it was positive for covid. patient advised to notify her doctor, to isolate and maintain social distances and wear a mask. patient verbalized understanding.
== END 2022-07-22 14:10 | disposition home or self-care (01) ==
LOC: ANHED 16:23 → ANH3MEDSUR 18:57
PROVIDERS: Emergency Medicine; Internal Medicine Gastroenterology; Admitting Provider Chiropractor; Emergency Provider Emergency Medicine; PCP Family Medicine; Visit Provider Chiropractor
PROC: 0DJ08ZZ Inspection of Upper Intestinal Tract, Via Natural or Artificial Opening Endoscopic (ICD-10-PCS; CPT 43235; principal; 2022-07-21 13:00)
DX: K44.9 Diaphragmatic hernia without obstruction or gangrene (principal); Q39.4 Esophageal web; J45.909 Unspecified asthma, uncomplicated; E78.5 Hyperlipidemia, unspecified; E11.9 Type 2 diabetes mellitus without complications; E86.0 Dehydration; K21.9 Gastro-esophageal reflux disease without esophagitis; M54.2 Cervicalgia; K22.2 Esophageal obstruction; Z82.5 Family history of asthma and other chronic lower respiratory diseases; Z84.89 Family history of other specified conditions; Z83.3 Family history of diabetes mellitus; Z77.22 Contact with and (suspected) exposure to environmental tobacco smoke (acute) (chronic); Z79.51 Long term (current) use of inhaled steroids; Z79.899 Other long term (current) drug therapy
CPT/HCPCS: 43450; 36415; 70360; 71046; 80053; 81001; 82948; 85025; 87086; 96361; 96372; 96374; 96375; 99285; A9270; G0378; J0131; J0696; J1100; J1610; J1650; J2060; J2704; J2765; J3030; J7120

== ENCOUNTER → 2022-08-01 13:09 | Outpatient (CLI) | payer BC, SELFPAY ==
--- NOTE | ~2022-08-01 | XR_ITS ---
EXAMINATION: XR chest 2V DATE: 08/01/2022 13:19 INDICATION: Cough and congestion TECHNIQUE: PA and lateral views of the chest are obtained. COMPARISON: 07/20/2022 FINDINGS: The lungs are free of acute opacities. No pleural effusion or pneumothorax. The cardiomedia stinal silhouette is normal. There is mild thoracic spondylosis. IMPRESSION: 1. No acute cardiopulmonary abnormality. Reviewed, dictated and finalized at location A.
== END ==
PROVIDERS: PCP Physician Assistant; Visit Provider Family Medicine
DX: R05.9 Cough, unspecified (principal)
CPT/HCPCS: 71046

== ENCOUNTER → 2023-04-20 14:55 | Outpatient (CLI) | payer BC, SELFPAY ==
--- NOTE | ~2023-04-20 | XR_ITS ---
EXAM: XR_CERV2-3V_CR DATE: 04/20/2023 15:08 HISTORY: M54.2 - Cervicalgia . COMPARISON: 12/13/2017. FINDINGS: Craniocervical association and atlantoaxial joint are aligned. No prevertebral soft tissue swelling. 2 mm anterolisthesis at C3-4. 3 mm anterolisthesis at C4-5. Focal kyphosis at C5-6. Verteb ral body heights are maintained. Mild marginal osteophytosis at C3-4 and C4-5. Moderate disc space na rrowing and marginal osteophytosis at C5-6. Moderate facet hypertrophy and sclerosis. IMPRESSION: Multilevel stable grade 1 listheses. Multilevel cervical spine degenerative disc disease, moderate at C5-6. Multilevel moderate facet arthropathy. Reviewed, dictated and finalized at location K. IMPRESSION: Multilevel stable grade 1 listheses. Multilevel cervical spine dege nerative disc disease, moderate at C5-6. Multilevel moderate facet arthropathy.
== END ==
PROVIDERS: PCP Family Medicine; Visit Provider Physician Assistant Medical
DX: M50.322 Other cervical disc degeneration at C5-C6 level (principal)
CPT/HCPCS: 72040

== ENCOUNTER 2023-08-22 10:29 | Outpatient (CLI) | payer BC, SELFPAY ==
--- NOTE | ~2023-08-22 | XR_ITS ---
EXAMINATION: XR cervical spine 4-5V DATE: 08/22/2023 11:32 INDICATION: Spondylosis without myelopathy or radiculopathy. TECHNIQUE: 6 views of cervical spine including flexion and extension views were obtained. COMPARISON: Cervical spine radiographs 04/20/2023 FINDINGS: There is 10 degrees levoscoliosis of cervicothoracic spine. There is 2 mm anterolisthesis o f C4 on C5. There is 2 mm retrolisthesis of C5 on C6 with extension. Vertebral body heights are sky l. There is mildly decreased disc height at C5-C6. There is multilevel facet joint osteoarthritis, se erica on the left at C4-C5. No central canal stenosis or prevertebral soft tissue swelling. IMPRESSION: 1. Mild cervical spondylosis. 2. Cervicothoracic levoscoliosis. Reviewed, dictated and finalized at location E. ENTARY TEACHER
--- NOTE | ~2023-08-22 | MR_ITS ---
EXAMINATION: MR cervical spine wo con DATE: 08/22/2023 11:11 INDICATION: Spondylosis without myelopathy or radiculopathy. Neck pain. TECHNIQUE: Magnetic resonance imaging (MRI) of the cervical spine was performed without intravenous c ontrast. COMPARISON: Cervical spine MRI 01/28/2018 FINDINGS: Bone alignment is normal. Vertebral body heights are normal. Intervertebral disc heights ar e normal. The spinal cord signal intensity is normal. The following disc levels are specifically disc ussed: C2-C3: There is a central protrusion. There is mild bilateral uncovertebral joint osteoarthritis. The re is severe bilateral facet joint osteoarthritis. There is mild bilateral neural foraminal stenosis. There is no central canal stenosis. C3-C4: The disc does not extend beyond the endplate margin. There is no uncovertebral joint osteoarth ritis. There is severe bilateral facet joint osteoarthritis. There is mild left neural foraminal sten osis. There is no central canal stenosis. C4-C5: The disc does not extend beyond the endplate margin. There is no uncovertebral joint osteoarth ritis. There is severe left facet joint osteoarthritis. There is mild left neural foraminal stenosis. There is no central canal stenosis. C5-C6: The disc is bulging. There is moderate right and mild left uncovertebral joint osteoarthritis. There is severe bilateral facet joint osteoarthritis. There is mild bilateral neural foraminal steno sis. There is mild central canal stenosis. C6-C7: The disc is bulging. There is mild bilateral uncovertebral joint osteoarthritis. There is mild right and severe left facet joint osteoarthritis. There is mild left neural foraminal stenosis. Ther e is mild central canal stenosis. C7-T1: The disc does not extend beyond the endplate margin. There is no uncovertebral joint osteoarth ritis. There is severe bilateral facet joint osteoarthritis. There is mild bilateral neural foraminal stenosis. There is no central canal stenosis. IMPRESSION: 1. Mild cervical spondylosis, stable from 01/28/18. Reviewed, dictated and finalized at location E. L MAINFRAME DEVELOPER
== END 2023-08-22 10:30 ==
PROVIDERS: PCP Neurological Surgery; Visit Provider Neurological Surgery
DX: M47.812 Spondylosis without myelopathy or radiculopathy, cervical region (principal); M41.9 Scoliosis, unspecified
CPT/HCPCS: 72050; 72141

== ENCOUNTER 2024-05-07 14:49 | Outpatient (CLI) | payer BC, SELFPAY ==
--- NOTE | ~2024-05-07 | CT_ITS ---
EXAMINATION: CT abdomen pelvis w con DATE: 05/07/2024 15:51 INDICATION: R10.9 - Unspecified abdominal pain TECHNIQUE: Computed tomography (CT) of the abdomen and pelvis was performed with 100 mL Omnipaque-350 intravenous contrast. Automated exposure control and iterative reconstruction technique were employe d. The dose-length product was 313.03 mGy-cm. COMPARISON: 02/10/2021. FINDINGS: Lower thorax: Mild bibasilar scar/atelectasis Liver: Normal. Biliary/Gallbladder: Gallbladder is absent. No bile duct dilation. Pancreas: No mass or duct dilation. Spleen: Normal. Adrenals:No mass. Kidneys: No suspicious mass, obstructing stone, or hydronephrosis. Multiple simple bilateral renal cy sts measuring up to 8.0 cm on the right. Multiple subcentimeter bilateral hypodensities, too small to characterize but also likely represent cysts GI tract: Mild distal esophageal wall edema. No small or large bowel dilation. Normal appendix. Mesentery/Peritoneum: No ascites, mass, or free air. Prominent mesenteric lymph nodes with the sugges tion of small fat halos. Mild mesenteric stranding. Retroperitoneum: No mass. Pelvis: Normal urinary bladder. Absent uterus. Normal left ovary. Right ovary not confidently visuali zed. Soft Tissues: Soft tissues and body wall unremarkable. Bones: No acute osseous finding. IMPRESSION: Mild esophagitis. Mild mesenteric panniculitis. Reviewed, dictated and finalized at location K.
[2024-05-07 15:47] LABS: Estimated Glomerular Filt Rate > 60
== END 2024-05-07 14:50 | disposition home or self-care (01) ==
LOC: ANHIMG 14:51
PROVIDERS: PCP Family Medicine; Visit Provider Physician Assistant Medical
DX: K65.4 Sclerosing mesenteritis (principal); K20.90 Esophagitis, unspecified without bleeding
CPT/HCPCS: 74177; Q9967

== ENCOUNTER 2024-11-03 09:15 | Outpatient (CLI) | payer BC, SELFPAY ==
--- NOTE | ~2024-11-03 | NM_ITS ---
EXAMINATION: NM stress w perf spect multi DATE: 11/03/2024 12:43 INDICATION: Chest pain. TECHNIQUE: Rest images were obtained following intravenous administration of 10.5 mCi Tc99m tetrofosm in (Myoview). The patient performed an exercise activity. At peak exercise, 34.3 mCi Tc99m tetrofosmi n (Myoview) was administered intravenously, and stress images were obtained. Data was reconstructed i nto short axis and horizontal and vertical long axis SPECT images. Gated SPECT images were also obtai vicki. COMPARISON: None. FINDINGS: There is no definite reversible or fixed perfusion abnormality to suggest ischemia or infar ction. There is no segmental wall motion abnormality. Left ventricular ejection fraction measures 6 8%. IMPRESSION: 1. No definite ischemia or infarct. 2. Normal left ventricular ejection fraction measuring 68%. Reviewed, dictated and finalized at location B. PRINT PRESS OPERATOR
--- NOTE | 2024-11-03 09:46 | EST_ITS ---
Patient Info Name: Kalli López Age: 59 years : 1965 Gender: Female Ht: 62 in Wt: 132 lbs BSA: 1.63 m2 HR: 63 bpm BP: 140 / 68 mmHg Exam Date: 11/03/2024 10:13 AM Exam Location: [facility] Patient Status: Outpatient Admit Date: 11/03/2024 Staff Ordering Physician: Senia Sinclair PA-C Attending Provider: Sneia Sinclair PA-C Exercise Technologist: Sherron Isaac MARTIN Exercise Physician: Shmuel Parsons DO Exam Type: CA stress test treadmill w NM Study Info A nuclear stress test was performed. Summary 1. 1. Negative [place] exercise stress test for ischemic ST changes by ECG criteria. 2. 2. Good functional capacity, achieving 8.9 METs of workload. 3. 3. Appropriate HR response to exercise. 4. 4. Appropriate HR recovery at 1 minute post exercise. 5. 5. Nuclear scan to follow and will be reported separately. Please correlate with it. 6. 6. Patient informed of the above results. Protocol: [place] Stress ECG Details Stage: REST Duration (min): 1 min : 38 sec Speed (mph): 0.0 Grade (%): 0 HR (bpm): 63 SBP (mmHg): 140 DBP (mmHg): 68 METS: --- Stage: REST Duration (min): 7 min : 16 sec Speed (mph): 0.0 Grade (%): 0 HR (bpm): 65 SBP (mmHg): 140 DBP (mmHg): 68 METS: --- Stage: STAGE 1 Duration (min): 1 min : 0 sec Speed (mph): 1.7 Grade (%): 10 HR (bpm): 92 SBP (mmHg): 140 DBP (mmHg): 68 METS: --- Stage: STAGE 1 Duration (min): 2 min : 0 sec Speed (mph): 1.7 Grade (%): 10 HR (bpm): 107 SBP (mmHg): 140 DBP (mmHg): 68 METS: --- Stage: STAGE 1 Duration (min): 3 min : 0 sec Speed (mph): 1.7 Grade (%): 10 HR (bpm): 113 SBP (mmHg): 172 DBP (mmHg): 79 METS: --- Stage: STAGE 2 Duration (min): 1 min : 0 sec Speed (mph): 2.5 Grade (%): 12 HR (bpm): 119 SBP (mmHg): 172 DBP (mmHg): 79 METS: --- Stage: STAGE 2 Duration (min): 2 min : 0 sec Speed (mph): 2.5 Grade (%): 12 HR (bpm): 130 SBP (mmHg): 168 DBP (mmHg): 77 METS: --- Stage: STAGE 2 Duration (min): 3 min : 0 sec Speed (mph): 2.5 Grade (%): 12 HR (bpm): 139 SBP (mmHg): 168 DBP (mmHg): 77 METS: --- Stage: STAGE 3 Duration (min): 1 min : 0 sec Speed (mph): 3.4 Grade (%): 14 HR (bpm): 152 SBP (mmHg): 185 DBP (mmHg): 78 METS: --- Stage: STAGE 3 Duration (min): 1 min : 0 sec Speed (mph): 3.4 Grade (%): 14 HR (bpm): 152 SBP (mmHg): 185 DBP (mmHg): 78 METS: --- Stage: RECOVERY Duration (min): 0 min : 59 sec Speed (mph): 0.0 Grade (%): 0 HR (bpm): 109 SBP (mmHg): 185 DBP (mmHg): 78 METS: --- Stage: RECOVERY Duration (min): 1 min : 59 sec Speed (mph): 0.0 Grade (%): 0 HR (bpm): 84 SBP (mmHg): 185 DBP (mmHg): 78 METS: --- Stage: RECOVERY Duration (min): 2 min : 32 sec Speed (mph): 0.0 Grade (%): 0 HR (bpm): 79 SBP (mmHg): 148 DBP (mmHg): 69 METS: --- Rest HR: 65 bpm Peak HR: 153 bpm Rest Sys BP: 140 mmHg Peak Sys BP: 185 mmHg Max Pred HR: 161 bpm % Max Pred HR: 95 % Target HR: 137 bpm Max RPP: 28,305 bpm*mmHg Donato Score: 1 Termination Reason: Reached target heart rate or workload Cardiac Symptoms: Shortness of breath Max ST Seg Deviation: -1 mm Total Time: 7 min : 0 sec Rest Barclay BP: 68 mmHg Peak Barclay BP: 78 mmHg Angina Score: None Total METS: 8.9 Resting ECG Sinus rhythm. Stress ECG No ST changes. Arrhythmias None. Report Signatures
== END 2024-11-03 09:16 | disposition home or self-care (01) ==
PROVIDERS: PCP Family Medicine; Visit Provider Student in an Organized Health Care Education/Training Program
DX: R07.9 Chest pain, unspecified (principal)
CPT/HCPCS: 78452; 93017; A9502

== ENCOUNTER 2024-11-14 13:18 | Outpatient (CLI) | payer BC, SELFPAY ==
--- NOTE | ~2024-11-14 | CT_ITS ---
EXAMINATION: CT abdomen pelvis w con DATE: 11/14/2024 13:39 INDICATION: Diarrhea, unspecified. TECHNIQUE: Computed tomography (CT) of the abdomen and pelvis was performed with 100 mL Omnipaque 350 intravenous contrast. Automated exposure control and iterative reconstruction technique were employe d. The dose-length product was 321.23 mGy-cm. COMPARISON: CT abdomen and pelvis 05/07/2024 FINDINGS: The visualized portions of lung bases demonstrate mild atelectasis. No pleural effusion. Th e heart size is normal. No pericardial effusion. The liver, spleen, and pancreas are normal. There ar e changes of cholecystectomy. There are cysts in the kidneys measuring up to 8.3 cm on the right. The re is chronic fat stranding at the root of the small bowel mesentery. There are no dilated loops of b owel. The appendix is normal. There are no pathologically enlarged lymph nodes. There is no free intr aperitoneal fluid. There is mild thoracic and lumbar spondylosis. IMPRESSION: 1. No etiology for the patient's symptoms. Reviewed, dictated and finalized at location A. DENTIAL DIRECT SUPPORT PROFESSIONAL
[2024-11-14 13:33] LABS: Estimated Glomerular Filt Rate > 60
== END 2024-11-14 13:19 | disposition home or self-care (01) ==
PROVIDERS: PCP Family Medicine; Visit Provider Student in an Organized Health Care Education/Training Program
DX: R19.7 Diarrhea, unspecified (principal); R19.5 Other fecal abnormalities; R10.13 Epigastric pain; R10.33 Periumbilical pain; R10.819 Abdominal tenderness, unspecified site
CPT/HCPCS: 74177; Q9967

== ENCOUNTER 2025-05-05 13:30 | Outpatient (CLI) | payer BC, SELFPAY ==
--- NOTE | ~2025-05-05 | US_ITS ---
EXAMINATION:US venous doppler LE RT INDICATION:Right leg swelling. No known injury. TECHNIQUE: Multiple grayscale, color flow and Doppler images of the right lower extremity deep venous systems were obtained and reviewed. COMPARISON: FINDINGS: The common femoral, superficial femoral and popliteal veins demonstrate normal respiratory variation, augmentation and compressibility. Color flow is also seen within the posterior tibial, pe roneal, greater saphenous and profunda veins. IMPRESSION: 1: No lower extremity deep venous thrombosis. Reviewed, dictated and finalized at location A.
== END 2025-05-05 13:31 | disposition home or self-care (01) ==
PROVIDERS: PCP Family Medicine; Visit Provider Family Medicine
DX: M79.89 Other specified soft tissue disorders (principal)
CPT/HCPCS: 93971

== ENCOUNTER 2025-06-02 10:15 | Outpatient (CLI) | payer BC, SELFPAY ==
--- NOTE | ~2025-06-02 | US_ITS ---
US soft tissue LE RT 06/02/2025 10:30 Indication: Tate's cyst right popliteal fossa Procedure: High-resolution ultrasound of the right popliteal fossa Comparison: No prior studies for comparison. Findings: There are multiple cysts of the popliteal fossa largest measuring 5.3 x 3.3 x 1.4 cm. No suspicious solid masses are identified. Impression: 1: Multiple cysts of the right popliteal fossa, largest measuring 5.3 cm greatest dimension. Reviewed, dictated and finalized at location A. Impression: 1: Multiple cysts of the right popliteal fossa, largest measuring 5.[address] dimension.
== END 2025-06-02 10:16 | disposition home or self-care (01) ==
PROVIDERS: PCP Family Medicine; Visit Provider Student in an Organized Health Care Education/Training Program
DX: M71.21 Synovial cyst of popliteal space [Baker], right knee (principal)
CPT/HCPCS: 76882